=== PATIENT | female | born 1950 | race Caucasian/White ===

== ENCOUNTER → 2016-08-21 | Outpatient (CLI) | payer MEDICARE, BC ==
[~2016-08-21] MED LIST: EPIPEN 2-PAK1 MG/ML IM; LIPITOR20 MG PO; NEURONTIN300 MG/CAP PO; PREDNISONE20 MG PO; PROZAC 10MG10 MG PO; VERAPAMIL 440 MG/TAB PO
[2016-08-21 16:45] LABS: HIV 1/2 Antibodies Non-Reactive; HIV-1p24 Antigen Non-Reactive
== END ==
LOC: COL.LAB 15:52
PROVIDERS: Orthopaedic Surgery
DX: Z01.812 Encounter for preprocedural laboratory examination (principal); M25.862 Other specified joint disorders, left knee

== ENCOUNTER → 2017-03-17 | Outpatient (CLI) | payer MEDICARE, BC | LOC: MC.RAD 10:50 | DX: Z12.31 Encounter for screening mammogram for malignant neoplasm of breast (principal) ==

== ENCOUNTER → 2018-04-23 | Outpatient (CLI) | payer MEDICARE, BC | LOC: MC.RAD 10:49 | DX: Z12.31 Encounter for screening mammogram for malignant neoplasm of breast (principal) ==

== ENCOUNTER → 2018-11-10 | Outpatient (CLI) | payer MEDICARE, BC | LOC: COL.PUL 10-22 10:00 | DX: R06.02 Shortness of breath (principal); Z87.891 Personal history of nicotine dependence | CPT/HCPCS: J7674 ==

== ENCOUNTER → 2019-06-27 | Outpatient (CLI) | payer MEDICARE, BC | LOC: COL.RAD 09:45 | DX: M19.041 Primary osteoarthritis, right hand (principal) | CPT/HCPCS: J3301; Q9967 ==

== ENCOUNTER → 2019-11-02 | Outpatient (CLI) | payer MEDICARE, BC ==
[~2019-11-02] MED LIST changes: +ALPHA LIPOIC ACID PO; +CALCIUM CARBON650 M2 PO; +CLARITIN 1010 MG/TAB PO; +CLARITIN-D 10 M1 T24 PO; +CYANOCOBALAMIN PO; +CYMBALTA 60MG60 MG PO; +ELIQUIS 5MG PO; +FLOVENT DI50 MCG/Act IH; +ISOPTIN SR180 M1 PO; +LEXAPRO20 MG PO; +MULTI VITAMINS1 TAB PO; +NASACORT OTC NS; +PROAIR HFA0.09 MG/AC IH; +TURMERIC500 MG PO; +TYLENOL 8 HR PO; +WESTCORT 0.2% C15 GM TP
[2019-11-02 11:33] LABS: CALCIUM 9.4 mg/dL (8.4-10.2); CREATININE, serum 0.73 (0.52-1.25); POTASSIUM 4.5 mmol/L (3.4-5.0)
== END ==
LOC: COL.RAD 10:48
PROVIDERS: Internal Medicine Pulmonary Disease
DX: R06.02 Shortness of breath (principal); Z86.711 Personal history of pulmonary embolism
CPT/HCPCS: Q9967

== ENCOUNTER → 2019-11-11 | Outpatient (CLI) | payer MEDICARE, BC | LOC: COL.RAD 09:52 | DX: Z86.711 Personal history of pulmonary embolism (principal); Z86.718 Personal history of other venous thrombosis and embolism | CPT/HCPCS: A9540; A9567 ==

== ENCOUNTER → 2020-01-25 | Outpatient (CLI) | payer MEDICARE, BC | LOC: COL.RAD 08:30 | DX: I26.99 Other pulmonary embolism without acute cor pulmonale (principal) ==

== ENCOUNTER 2020-03-07 15:10 | Inpatient (IN) | payer MEDICARE, BC ==
[~2020-03-07] VITALS: Ht 180.3 cm; Wt 123.0 kg
[~2020-03-07 15:10] MED LIST changes: -MULTI VITAMINS1 TAB PO; +ONE-A-DAY ESSE1 EACH PO
[2020-04-11] VITALS (13 sets, daily range): BP systolic 114–154; BP diastolic 58–88; PULSE 56–81; TEMP 97.3–99
[2020-04-11] MEDS ORDERED: ELIQUIS 5MG PO (03:42)
[2020-04-11] MEDS ORDERED: REQUIP0.25 MG PO (03:47)
[2020-04-11] MEDS ORDERED: SINGULAIR 110 MG/TAB PO (03:48)
[2020-04-11] MEDS ORDERED: NORCO 325 MG-51 TAB PO (03:48)
[2020-04-11] MEDS ORDERED: MIRALAX PA17 GM/Dose PO (03:49)
[2020-04-11] MEDS ORDERED: PATADAY 2.5 ML2.5 ML OU (03:49)
[2020-04-11] MEDS ORDERED: FLONASE SENSIM9.9 ML NS (05:51)
[2020-04-11] MEDS ORDERED: LEXAPRO20 MG PO (05:53)
--- NOTE | 2020-04-11 10:10 | NUR ---
PATIENT BACK IN ROOM 331 POST OP. A&O. VSS. DENIES PAIN IN RLE. PATIENT IS ABLE TO MOVE BLE. RTK DRESSING IS CD&I WITH ACEWRAP AND ICE PACK INPLACE. TEDS TO LLE. SCD'S TO BLE. POSITIVE PEDAL PULSES TO BLE. NO C/O N/V. IV FLUIDS INFUSING INTO LEFT FORARM IV VIA PUMP. LIQUIDS AT BEDSIDE. HEAD TO TOE ASSESSMENT WNL. ORIENTED TO ROOM. CALL LIGHT IN REACH. AT BEDSIDE.
--- NOTE | 2020-04-11 11:13 | NUR ---
First visit from the molded goods inspector trimmer. No needs right now.
--- NOTE | 2020-04-11 12:00 | NUR ---
PATIENT DOING WELL. VSS. PATIENT SITTING UP IN BED WITH LUNCH TRAY. NO C/O N/V. PATIENT IS REPORTING SOME PAIN RATED AT 4-5 ON PAIN SCALE IN RLE AND IS REQUESTING SOMETHING FOR PAIN. GAVE PRN ROXICODONE, TWO TABS.
--- NOTE | 2020-04-11 14:49 | NUR ---
Commercial Representative met with patient to discuss discharge planning. Patient lives alone in [place] and sees Dr. Unger for primary care. Patient obtains medications from [facility] pharmacy with no difficulties. Patient has a four wheeled walker and also uses oxygen overnight from [employer]. Patient is supposed to use a CPAP, but reports she just can't do it. Patient states she provided DPOA-HC paperwork upon admission, but SW did not locate it in EMR. Patient lists her point of contact as her brother in law, Dwayne (ph#[phone]). Patient plans to return home upon discharge. SW will continue to follow.
--- NOTE | 2020-04-11 19:05 | NUR ---
Received report from SUSHMA Montano. Pt currently resting in bed and has her call light within reach.
--- NOTE | 2020-04-11 22:00 | NUR ---
Pt ambulated down to the nurse station and back. Pt has been getting pain medication when available. Pt stated that her pain is much better. Pt tolerated walking very well. Pt is currently back in bed and has her call light within reach.
[2020-04-12 05:20] VITALS: BP 133/68; PULSE 76; TEMP 98
[2020-04-12 06:26] LABS: HEMATOCRIT 38.3 % (37.0-47.0); HEMOGLOBIN 12.3 g/dl (12.5-16.0)
--- NOTE | 2020-04-12 07:11 | NUR ---
Reported off to SUSHMA Montano. Pt is curently resting in bed. Pt was given her morning medications as well as her pain medication this morning. Pt stated that her pain was at a 7 this morning before the mediction was given.
[2020-04-12 09:34] VITALS: BP 127/76; PULSE 80; TEMP 98
--- NOTE | 2020-04-12 11:25 | NUR ---
Dressing changed perfromed of right knee. 17 cm long suture present.
[2020-04-12 12:50] VITALS: BP 120/66; PULSE 78; TEMP 98.2
[2020-04-12 15:35] VITALS: BP 154/72; PULSE 84; TEMP 97.6
[2020-04-12 20:42] VITALS: BP 141/65; PULSE 80; TEMP 97.6
--- NOTE | 2020-04-12 22:34 | NUR ---
Patient resting in bed stating her pain is tolerable. Patient's IV site had redness and when flushed became puffy. IV was discontinued. Patient has no other complaints.
[2020-04-12 23:40] VITALS: BP 116/66; PULSE 73; TEMP 99
--- NOTE | 2020-04-13 04:52 | NUR ---
PATIENT HAS SOME COMPLAINTS OF PAIN. GAVE HER OXYCODONE AND PATIENT IS NOW SLEEPING.
[2020-04-13 04:59] VITALS: BP 133/68; PULSE 65; TEMP 97.4
[2020-04-13 06:55] VITALS: BP 117/60; PULSE 78; TEMP 97.8
--- NOTE | 2020-04-13 08:00 | NUR ---
Patient in bed resting. Alert and oriented x 3. Assessment complete. Denies pain at this time. Tedhose and SCDs to BLE. Aquacell to right knee is CDI. Denies further needs at this time.
[2020-04-13] MEDS ORDERED: NORCO 325 MG-7.1 TAB PO (11:07)
[2020-04-13] MEDS ORDERED: ROXICODONE 55 MG/TAB PO (11:08)
[2020-04-13 12:03] VITALS: BP 128/63; PULSE 77; TEMP 98
--- NOTE | 2020-04-13 13:20 | NUR ---
Discharge education provided to patient. Educated on when to call provider as well as follow up appointments. Educated on signs and symptoms of infection. All questions answered, patient requested pain meds prior to discharge, medications given per orders.
--- NOTE | 2020-04-13 13:37 | NUR ---
Patient out by wheelchair with surgical staff and family.
== END 2020-04-13 13:37 | disposition home or self-care (01) | DRG 470 ==
LOC: JCC 04-11 05:15
PROVIDERS: ADMIT Orthopaedic Surgery
PROC: 0SRC0J9 Replacement of Right Knee Joint with Synthetic Substitute, Cemented, Open Approach (ICD-10-PCS; principal; 2020-04-11 07:30)
DX: M17.11 Unilateral primary osteoarthritis, right knee (principal); Z86.718 Personal history of other venous thrombosis and embolism; Z86.711 Personal history of pulmonary embolism
CPT/HCPCS: A9284; C1776; J0690; J2250; J2405; J2704; J3010; J7030; J7120

== ENCOUNTER → 2020-03-12 | Outpatient (CLI) | payer MEDICARE, BC ==
[~2020-03-12] MED LIST changes: +MULTI VITAMINS1 TAB PO; -ONE-A-DAY ESSE1 EACH PO
== END ==
LOC: COL.RAD 07:22
DX: M19.041 Primary osteoarthritis, right hand (principal)
CPT/HCPCS: J3301; Q9967

== ENCOUNTER 2020-05-07 12:20 | Emergency (ER) | payer MEDICARE, BC ==
[~2020-05-07] VITALS: Ht 180.3 cm; Wt 118.2 kg
[~2020-05-07 12:20] MED LIST changes: +FLONASE SENSIM9.9 ML NS; +MIRALAX PA17 GM/Dose PO; -MULTI VITAMINS1 TAB PO; +NORCO 325 MG-51 TAB PO; +NORCO 325 MG-7.1 TAB PO; +ONE-A-DAY ESSE1 EACH PO; +PATADAY 2.5 ML2.5 ML OU; +REQUIP0.25 MG PO; +ROXICODONE 55 MG/TAB PO; +SINGULAIR 110 MG/TAB PO
[2020-05-07 12:29] VITALS: TEMP 97.2
[2020-05-07 13:37] LABS: ALANINE AMINOTRANSFERASE 17 U/L (4-34); ALKALINE PHOSPHATASE 103 U/L (50-136); ANION GAP 6 mmol/L (7-16); AST,SGOT 24 U/L (15-37); BILIRUBIN,TOTAL 0.8 mg/dL (0.0-1.0); BLOOD UREA NITROGEN 13 mg/dL (7-17); CALCIUM 9.1 mg/dL (8.4-10.2); CARBON DIOXIDE 28 mmol/L (22-30); CHLORIDE 103 mmol/L (98-107); CREATININE, serum 0.67 (0.52-1.25); GLUCOSE 107 mg/dL (74-106); POTASSIUM 3.9 mmol/L (3.4-5.0); SODIUM 138 mmol/L (137-145); TOTAL PROTEIN 6.8 gm/dL (6.4-8.2)
[2020-05-07 13:42] LABS: BASO % 0.4 % (0.0-2.0); EOS # 0.2 (0.0-0.7); EOS % 3.5 % (0-4.0); GRAN # 2.9 (1.4-6.5); GRAN % 65.1 % (42.2-75.2); HEMATOCRIT 41.4 % (37.0-47.0); HEMOGLOBIN 13.4 g/dl (12.5-16.0); LYMPH % 21.3 % (20.0-51.0); MEAN CELL VOLUME 93 fl (80.0-100.0); MEAN CORPUSCULAR HEMOGLOBIN 30 pg (27.0-31.0); MEAN CORPUSCULAR HGB CONC 32 g/dl (33.0-37.0); MEAN PLATELET VOLUME 11.8 fl (7.4-10.4); MONO # 0.4 (0.1-0.6); MONO % 9.5 % (1.7-9.3); PLATELET COUNT 222 K/mm3 (130-400); RED BLOOD COUNT 4.45 M/mm3 (4.10-5.30); REDCELL DISTRIBUTION WIDTH-CV 12.5 % (11.5-14.5)
[2020-05-07 13:49] LABS: TROPONIN-I < 0.012 ng/mL (0.000-0.035)
[2020-05-07 15:13] LABS: COLLECTION METHOD CLEAN CATCH
[2020-05-07 15:35] LABS: PH 7 (5-8); SQUAMOUS EPITHELIAL None Seen /hpf; URINE APPEARANCE Clear; URINE BACTERIA None Seen /hpf; URINE BILIRUBIN Negative (NEGATIVE); URINE BLOOD Negative (NEGATIVE); URINE COLOR Yellow; URINE GLUCOSE Negative (NEGATIVE); URINE KETONE Negative (NEGATIVE); URINE LEUKOCYTE ESTERASE Negative (NEGATIVE); URINE NITRATE Negative (NEGATIVE); URINE PROTEIN(semi-quant) Negative (NEGATIVE); URINE RBC 0-2 /hpf; URINE UROBILINOGEN Negative (NEGATIVE)
[2020-05-07] MEDS ORDERED: CEPHALEXIN500 M1 PO (16:11)
[2020-05-07 16:44] VITALS: BP 169/102; PULSE 77
== END 2020-05-07 16:44 | disposition home or self-care (01) ==
LOC: COL.ER 12:20
PROVIDERS: Family Medicine
DX: R06.00 Dyspnea, unspecified (principal); L03.116 Cellulitis of left lower limb; E78.5 Hyperlipidemia, unspecified; Z20.828 Contact with and (suspected) exposure to other viral communicable diseases; Z88.1 Allergy status to other antibiotic agents; Z88.4 Allergy status to anesthetic agent; Z88.6 Allergy status to analgesic agent; Z79.01 Long term (current) use of anticoagulants; Z79.51 Long term (current) use of inhaled steroids; Z79.891 Long term (current) use of opiate analgesic
CPT/HCPCS: J0690; J7120; Q9967

== ENCOUNTER → 2020-06-28 | Outpatient (CLI) | payer MEDICARE, BC ==
[~2020-06-28] MED LIST changes: +CEPHALEXIN500 M1 PO
== END ==
LOC: COL.RAD 12:01
DX: I27.20 Pulmonary hypertension, unspecified (principal)
CPT/HCPCS: A9540; A9567

== ENCOUNTER → 2020-07-06 | Outpatient (CLI) | payer MEDICARE, BC | LOC: COL.VAS 13:56 | DX: I27.20 Pulmonary hypertension, unspecified (principal) ==

== ENCOUNTER → 2020-07-09 | Outpatient (CLI) | payer MEDICARE, BC | LOC: COL.RAD 08:00 | DX: I27.20 Pulmonary hypertension, unspecified (principal) ==

== ENCOUNTER → 2020-10-04 | Outpatient (CLI) | payer MEDICARE, BC | LOC: COL.RAD 09:17 | DX: M25.541 Pain in joints of right hand (principal) | CPT/HCPCS: J3301; Q9967 ==

== ENCOUNTER 2020-10-19 08:37 | Emergency (ER) | payer MEDICARE, BC ==
[~2020-10-19] VITALS: Ht 180.3 cm; Wt 113.6 kg
[2020-10-19 08:45] VITALS: TEMP 97.6
[2020-10-19 09:04] LABS: BASO % 0.3 % (0.0-2.0); EOS # 0.1 (0.0-0.7); EOS % 0.9 % (0-4.0); GRAN # 3.9 (1.4-6.5); GRAN % 67.9 % (42.2-75.2); HEMATOCRIT 43.4 % (37.0-47.0); HEMOGLOBIN 13.8 g/dl (12.5-16.0); LYMPH # 1.4 (1.2-3.4); LYMPH % 23.2 % (20.0-51.0); MEAN CELL VOLUME 91 fl (80.0-100.0); MEAN CORPUSCULAR HEMOGLOBIN 29 pg (27.0-31.0); MEAN CORPUSCULAR HGB CONC 32 g/dl (33.0-37.0); MEAN PLATELET VOLUME 10.6 fl (7.4-10.4); MONO # 0.4 (0.1-0.6); MONO % 7.4 % (1.7-9.3); PLATELET COUNT 201 K/mm3 (130-400); RED BLOOD COUNT 4.77 M/mm3 (4.10-5.30); REDCELL DISTRIBUTION WIDTH-CV 13.5 % (11.5-14.5)
[2020-10-19 09:19] LABS: ALANINE AMINOTRANSFERASE 23 U/L (4-34); ALBUMIN 4.1 gm/dL (3.5-5.0); ALKALINE PHOSPHATASE 76 U/L (50-136); ANION GAP 4 mmol/L (7-16); AST,SGOT 26 U/L (15-37); BILIRUBIN,TOTAL 0.3 mg/dL (0.0-1.0); BLOOD UREA NITROGEN 15 mg/dL (7-17); C-REACTIVE PROTEIN < 0.5 mg/dL (0.0-0.9); CALCIUM 8.7 mg/dL (8.4-10.2); CARBON DIOXIDE 30 mmol/L (22-30); CHLORIDE 105 mmol/L (98-107); CREATININE, serum 0.66 (0.52-1.25); GLUCOSE 94 mg/dL (74-106); POTASSIUM 4.2 mmol/L (3.4-5.0); SODIUM 139 mmol/L (137-145); TOTAL PROTEIN 7.1 gm/dL (6.4-8.2)
[2020-10-19] MEDS ORDERED: PREDNISONE20 MG PO (10:15)
[2020-10-19 10:35] VITALS: BP 141/89; PULSE 72
== END 2020-10-19 10:35 | disposition home or self-care (01) ==
LOC: COL.ER 08:37
PROVIDERS: Family Medicine
DX: L50.0 Allergic urticaria (principal); I10 Essential (primary) hypertension; Z88.1 Allergy status to other antibiotic agents; Z88.8 Allergy status to other drugs, medicaments and biological substances; Z79.899 Other long term (current) drug therapy
CPT/HCPCS: J1200; J2930

== ENCOUNTER 2021-05-30 15:00 | Outpatient (RCR) | payer MEDICARE, BC | END 2021-06-07 | disposition home or self-care (01) | LOC: WSC | DX: M89.49 Other hypertrophic osteoarthropathy, multiple sites (principal); R26.89 Other abnormalities of gait and mobility ==

== ENCOUNTER → 2021-06-26 | Outpatient (CLI) | payer MEDICARE, BC | LOC: MC.RAD 10:52 | DX: Z12.31 Encounter for screening mammogram for malignant neoplasm of breast (principal) ==

== ENCOUNTER → 2021-09-03 | Outpatient (CLI) | payer MEDICARE, BC | LOC: COL.RAD 08:56 | DX: M25.541 Pain in joints of right hand (principal) | CPT/HCPCS: J3301; Q9967 ==

== ENCOUNTER → 2022-08-04 | Outpatient (CLI) | payer MEDICARE, BC | LOC: MC.RAD 10:53 | DX: Z12.31 Encounter for screening mammogram for malignant neoplasm of breast (principal) ==

== ENCOUNTER → 2022-09-10 | Outpatient (CLI) | payer MEDICARE, BC | LOC: COL.RAD 09:52 | DX: M25.541 Pain in joints of right hand (principal) | CPT/HCPCS: J3301; Q9967 ==

== ENCOUNTER → 2023-06-24 | Outpatient (CLI) | payer MEDICARE, BC ==
[~2023-06-24] MED LIST changes: +Albuterol 0.083% Neb Soln 2.5 MG/3 ML UD IH ONE
== END ==
LOC: COL.CARD 11:04
DX: R06.02 Shortness of breath (principal)

== ENCOUNTER 2024-01-31 21:52 | Inpatient (IN) | payer MEDICARE ==
[~2024-01-31] VITALS: Ht 180.3 cm; Wt 132.7 kg
[~2024-01-31 21:52] MED LIST changes: -Albuterol 0.083% Neb Soln 2.5 MG/3 ML UD IH ONE
[2024-01-31] MEDS ORDERED: dilTIAZem 25 MG/5 ML VIAL IV ONE ×2 (22:30)
[2024-01-31 22:46] LABS: BASO % 0.5 % (0.0-2.0); EOS # 0.1 K/mm3 (0.0-0.7); EOS % 1.8 % (0.0-4.0); GRAN # 3.7 K/mm3 (1.4-6.5); GRAN % 58.2 % (42.2-75.2); HEMATOCRIT 39.7 % (37.0-47.0); HEMOGLOBIN 12.8 g/dl (12.5-16.0); LYMPH # 1.9 K/mm3 (1.2-3.4); LYMPH % 29.9 % (20.0-51.0); MEAN CELL VOLUME 93 fl (80.0-100.0); MEAN CORPUSCULAR HEMOGLOBIN 30 pg (27-31); MEAN CORPUSCULAR HGB CONC 32 g/dl (33.0-37.0); MEAN PLATELET VOLUME 13.5 fl (7.4-10.4); MONO # 0.6 K/mm3 (0.1-0.6); MONO % 9.1 % (1.7-9.3); PLATELET COUNT 151 K/mm3 (130-400); RED BLOOD COUNT 4.27 M/mm3 (4.10-5.30); REDCELL DISTRIBUTION WIDTH-CV 12.7 % (11.5-14.5)
[2024-01-31 22:57] LABS: ALANINE AMINOTRANSFERASE 31 U/L (0-55); ALBUMIN 3.7 g/dL (3.4-4.8); ALKALINE PHOSPHATASE 77 U/L (40-150); ANION GAP 14 mmol/L (7-16); AST,SGOT 22 U/L (5-34); BILIRUBIN,TOTAL 0.6 mg/dL (0.2-1.2); BLOOD UREA NITROGEN 17 mg/dL (10-20); CHLORIDE 106 mEq/L (98-107); CREATININE, serum 0.88 mg/dL (0.57-1.11); GLUCOSE 105 mg/dL (70-99); MAGNESIUM 1.8 mg/dL (1.6-2.6); POTASSIUM 3.6 mEq/L (3.5-4.5); SODIUM 140 mEq/L (136-145); TOTAL PROTEIN 6.6 g/dl (6.2-8.1)
[2024-01-31] MEDS ORDERED: NS 1,000 ML IV ONE (23:00)
[2024-01-31 23:08] LABS: TROPONIN-I < 0.010 ng/mL (0.00-0.033)
[2024-02-01] VITALS (16 sets, daily range): BP systolic 98–124; BP diastolic 68–84; PULSE 55–108; TEMP 97.4–97.9
[2024-02-01 00:27] LABS: COLLECTION METHOD CLEAN CATCH
[2024-02-01] MEDS ORDERED: Acetaminophen 325 MG TAB PO PRN (00:30)
[2024-02-01] MEDS ORDERED: NS 1,000 ML IV ONE (00:30)
[2024-02-01] MEDS ORDERED: Ondansetron 4 MG/2 ML VIAL IV PRN (00:30)
[2024-02-01] MEDS ORDERED: Magnesium Sulfate 4% 50 ML IV ONE (00:30)
[2024-02-01 00:39] LABS: URINE APPEARANCE CLEAR (CLEAR/HAZY); URINE BLOOD NEGATIVE (NEGATIVE); URINE COLOR YELLOW (YELLOW); URINE GLUCOSE NEGATIVE (NEGATIVE); URINE KETONE TRACE (NEGATIVE); URINE NITRATE NEGATIVE (NEGATIVE); URINE PROTEIN(semi-quant) 1+ (NEGATIVE)
[2024-02-01] MEDS ORDERED: LASIX 20MG TABL20 MG PO (02:56)
[2024-02-01] MEDS ORDERED: LYRICA 75MG CAP75 MG PO (02:58)
[2024-02-01] MEDS ORDERED: REQUIP 1MG T1 MG/TAB PO (03:00)
[2024-02-01] MEDS ORDERED: REQUIP2 MG PO (03:01)
[2024-02-01] MEDS ORDERED: ZYRTEC 10MG10 MG PO (03:05)
[2024-02-01] MEDS ORDERED: NATURAL IRON65 MG (03:13)
[2024-02-01] MEDS ORDERED: MAGNESIUM250 M1 PO (03:15)
[2024-02-01] MEDS ORDERED: [UNRECOGNIZED DRUG - REMARK] IH SCH (07:00)
[2024-02-01] MEDS ORDERED: Budesonide Neb Susp 0.5 MG/2 ML AMP IH SCH (07:00)
[2024-02-01] MEDS ORDERED: Pregabalin 75 MG CAP PO SCH (09:00)
[2024-02-01] MEDS ORDERED: Apixaban 5 MG TABLET PO SCH (09:00)
[2024-02-01] MEDS ORDERED: Atorvastatin 20 MG TAB PO SCH (09:00)
[2024-02-01] MEDS ORDERED: Escitalopram 10 MG TAB PO SCH (09:00)
[2024-02-01] MEDS ORDERED: Sennosides/Docusate 8.6-50 MG TAB PO SCH (09:00)
[2024-02-01] MEDS ORDERED: Ferrous Sulfate 325 MG TAB PO SCH (09:00)
--- NOTE | 2024-02-01 09:26 | NUR ---
Patient resting in bed, alert and oriented x 4, VSS. States some lightheadedness when walking. Getting fluids NS 50 MLS/HR. Tele in place, afib. Assessment completed. States some headache, tylenol given. She has been NPO since 6pm yesterday. Echo alfonso arriving. No further needs at this time. Call light within reach.
[2024-02-01 10:08] LABS: THYROID STIMULATING HORMONE 2.015 uIU/mL (0.350-4.940); TROPONIN-I 6 HR POST INITIAL < 0.010 ng/mL (0.00-0.033)
--- NOTE | 2024-02-01 11:02 | NUR ---
Patient signed consent for procedure. Dr. Mckeon arriving. Pt going for procedure right now.
[2024-02-01] MEDS ORDERED: Lidocaine PF 1% (10 MG/ML) 5 ML VIAL ONE (11:16)
[2024-02-01] MEDS ORDERED: Adenosine 6 MG/2 ML VIAL IV SCH (12:11)
[2024-02-01] MEDS ORDERED: Verapamil 2.5 MG/ML 2 ML VIAL IV SCH (12:12)
--- NOTE | 2024-02-01 12:12 | NUR ---
SW met with patient to complete initial assessment for discharge planning. Patient [facility] that [facility] [place]. She lists her friend Ambreen Moya *[phone]) and Dwayne Jordana ([phone]) as DPOA. Patient sees Dr. Unger as her PCP and uses [facility]. Patient states that she has a cane, walker, bsc, shower chair in a walk in shower and grab bars. Patient is covered by Medicare A&B and BS supplemental insurances. Patient is independent with all activities and drives herself to appointments without difficulty. Discharge plan: Home
[2024-02-01] MEDS ORDERED: Amiodarone 450 MG in D5W Excel 250 ML IV SCH ×2 (12:15→18:02)
--- NOTE | 2024-02-01 12:39 | NUR ---
Patient is back in the room. ALert and oriented x4. Post op VS started.
--- NOTE | 2024-02-01 12:55 | NUR ---
Patient is getting amiodarone gtt 34.5mls/hr. 1mg/min.
[2024-02-01 12:56] LABS: CHOLESTEROL RISK RATIO 3.1
[2024-02-01] MEDS ORDERED: WEGOVY0.25 MG/0. SL (13:27)
[2024-02-01] MEDS ORDERED: SEMAGLUTIDE (14:04)
[2024-02-01] MEDS ORDERED: Regadenoson 0.08 MG/ML 5 ML SYRINGE IV SCH (15:56)
--- NOTE | 2024-02-01 16:56 | NUR ---
Patient is back from [facility].
[2024-02-01] MEDS ORDERED: rOPINIRole 1 MG TAB PO SCH ×2 (17:00→21:00)
[2024-02-01] MEDS ORDERED: Heparin/D5W 250 ML IV SCH (21:00)
[2024-02-01] MEDS ORDERED: Heparin 5,000 UNITS/ML 1 ML VIAL IV PRN (21:00)
[2024-02-01] MEDS ORDERED: Mag/Al Hydrox/Simeth Susp 30 ML CUP PO PRN (22:30)
[2024-02-01] MEDS ORDERED: Famotidine 20 MG TAB PO SCH (22:30)
[2024-02-02] VITALS (16 sets, daily range): BP systolic 91–120; BP diastolic 59–95; PULSE 57–119; TEMP 97.6–98.6
[2024-02-02 04:12] LABS: BASO % 0.4 % (0.0-2.0); EOS # 0.1 K/mm3 (0.0-0.7); GRAN # 3.3 K/mm3 (1.4-6.5); GRAN % 65.9 % (42.2-75.2); HEMOGLOBIN 11.6 g/dl (12.5-16.0); LYMPH # 1.2 K/mm3 (1.2-3.4); LYMPH % 23.8 % (20.0-51.0); MEAN CELL VOLUME 91 fl (80.0-100.0); MEAN CORPUSCULAR HEMOGLOBIN 30 pg (27-31); MEAN CORPUSCULAR HGB CONC 32 g/dl (33.0-37.0); MEAN PLATELET VOLUME 13.8 fl (7.4-10.4); MONO # 0.4 K/mm3 (0.1-0.6); MONO % 7.7 % (1.7-9.3); PLATELET COUNT 118 K/mm3 (130-400); RED BLOOD COUNT 3.92 M/mm3 (4.10-5.30); REDCELL DISTRIBUTION WIDTH-CV 12.7 % (11.5-14.5)
[2024-02-02 04:31] LABS: HEMATOCRIT 35.8 % (37.0-47.0)
[2024-02-02 04:39] LABS: CALCIUM 8.9 mg/dL (8.4-10.2); CREATININE, serum 0.78 mg/dL (0.57-1.11); POTASSIUM 3.8 mEq/L (3.5-4.5)
--- NOTE | 2024-02-02 08:30 | NUR ---
PATIENT SITTING IN RECLINER.PATIENT ALERT AND ORIENTED X4. ON ROOM AIR. TELEMETRY PLACED. PATIENT REPORTS SOME EPIGASTRIC DISCOMFORT BUT DENIES PAIN. PATIENT AMIODARONE DRIP INFUSING PER DOCTORS ORDER ON RIGHT FORARM IV SITE C/D/I. HEPARIN DRIP ON PATIENT LEFT FORARM INFUSING PER PROTOCOL. PATIENT DENIES ANY NEEDS AT THIS TIME. CALL LIGHT WITHIN REACH. BED AT LOWEST POSITION.
[2024-02-02] MEDS ORDERED: Adenosine 6 MG/2 ML VIAL IV ONE ×2 (10:15→11:30)
--- NOTE | 2024-02-02 10:53 | NUR ---
Initial visit; Patient needing to talk and was weepy while doing so. Clarissa was receptive to prayer from Artist Manager which appeared to help a great deal. When Artist Manager prepared to leave Clarissa was smiling and thanked Artist Manager for keeping her in Artist Manager's prayers. Artist Manager will follow-up while patient is here.
[2024-02-02] MEDS ORDERED: Furosemide 20 MG TAB PO SCH (11:00)
--- NOTE | 2024-02-02 12:20 | NUR ---
CARDIOLOGY WILMA FLORES WAS NOTIFIED OF PATIENT ELEVATED HEART RATE.
[2024-02-02] MEDS ORDERED: Apixaban 5 MG TABLET PO SCH (13:15)
--- NOTE | 2024-02-02 16:44 | NUR ---
Cooker Loader contacted Hospitalist to order PT/OT eval. SW also was notified by Cardiology that patient needs a Life Vest. LORI faxed referral to Larry and left a message for Larry Gutierres Rep.
--- NOTE | 2024-02-02 16:49 | NUR ---
CRITICAL LAB VALUE AND BLOOD PRESSURE REPORTED TO HYACINTH CHONG. PATIENT DENIES ANY SYMPTOMS AT THIS TIME. PATIENT BLOOD PRESSURE WILL BE RECHECKED.
[2024-02-02] MEDS ORDERED: Pregabalin 75 MG CAP PO SCH (21:00)
--- NOTE | 2024-02-02 21:06 | NUR ---
PATIENT IS AWAKE AND ALERT, SITTING UP IN HER RECLINER. PATEINT DENIES ANY NEEDS OR COMPLAITNS AT THIS TIME. RFA IV WITH AMIO AT 0.5MG/HR INFUSING ORDERED. PERIPHERAL LINE WITH NO SIGNS OF INFILTRATION, PATIENT DENEIS ANY PAIN AT THE SITE. CALL LIGHT WITHIN REACH.
--- NOTE | 2024-02-02 23:45 | NUR ---
PATIENT AWAKE AND ALERT, SITTING UP IN BED. PATIEN RFA SITE CDI, SLIGHT REDNESS NOTED HOWEVER PATIENT DENIES ANY COMPLAINTS TO IV SIITE. AMIO GTT INFUSING ORDERED. PAIENT HER STILL 110-115 BPM. BLOOD PRESSURE OK AT THIS TIME.
[2024-02-03] VITALS (18 sets, daily range): BP systolic 95–112; BP diastolic 58–86; PULSE 55–113; TEMP 97.6–98.5
--- NOTE | 2024-02-03 03:26 | NUR ---
PATIENT ASLEEP, EASILY AROUSES. UPON CHECKING RFA SITE, REDNESS NOTED WHERE IV INSERTS TO RFA NOW TRAVELING UPWARDS. BLOOD RETURN POSITIVE. IV REMOVED D/T RENDESS/TENDERNESS. IV TO LFA WITH GREAT BLOOD REURN, PATENT, IV AMIO NOW INFUSING THERE. PATIENT DENEIS ANY NEEDS OR COMPLAITNS AT THIS TIME. CALL LIGHT WITHIN REACH.
[2024-02-03 06:24] LABS: BASO % 0.7 % (0.0-2.0); EOS # 0.1 K/mm3 (0.0-0.7); EOS % 2.4 % (0.0-4.0); GRAN # 2.8 K/mm3 (1.4-6.5); GRAN % 60.5 % (42.2-75.2); HEMOGLOBIN 11.4 g/dl (12.5-16.0); LYMPH # 1.2 K/mm3 (1.2-3.4); LYMPH % 25.5 % (20.0-51.0); MEAN CELL VOLUME 91 fl (80.0-100.0); MEAN CORPUSCULAR HEMOGLOBIN 30 pg (27-31); MEAN CORPUSCULAR HGB CONC 33 g/dl (33.0-37.0); MEAN PLATELET VOLUME 13.8 fl (7.4-10.4); MONO # 0.5 K/mm3 (0.1-0.6); MONO % 10.7 % (1.7-9.3); PLATELET COUNT 107 K/mm3 (130-400); RED BLOOD COUNT 3.84 M/mm3 (4.10-5.30); REDCELL DISTRIBUTION WIDTH-CV 12.6 % (11.5-14.5)
[2024-02-03 06:33] LABS: INR 1.7 (0.8-3.0); PROTHROMBIN TIME 18.3 SECONDS (9.7-12.8)
[2024-02-03 06:45] LABS: CALCIUM 8.7 mg/dL (8.4-10.2); CREATININE, serum 0.79 mg/dL (0.57-1.11); POTASSIUM 3.7 mEq/L (3.5-4.5)
--- NOTE | 2024-02-03 06:55 | NUR ---
BEDSIDE SHIFT REPORT GIVEN., PATIENT IS AWAKE AND ALERT ,SITTING UP IN BED. PATIENT DENIES ANY NEEDS OR COMPLAINTS. LFA IV WITH AMIOG TT INFUSING ORDERED. IV TO LFA CDI WITH NO S/S OF INFILTRATION. CALL LIGHT WTIHIN REACH.
--- NOTE | 2024-02-03 10:07 | NUR ---
Follow-up visit; Patient expressed gladness to see Devulcanizer Charger again this morning and thanked Devulcanizer Charger for checking on her. Patient states that she is doing much better, her mental state was much better and she thanked Devulcanizer Charger for her prayers that are working. wished Clarissa well.
--- NOTE | 2024-02-03 13:53 | NUR ---
Wire Drawing Setter spoke with RN who advised patient's life vest will be delivered and fitted today.
--- NOTE | 2024-02-03 14:20 | NUR ---
patient picc dressing changed by iv services nurse. patient observed with experiencing some dizziness. patient vital checked. patient helped to recliner to eat lunch. call light within reach. chair alarm on.
--- NOTE | 2024-02-03 19:03 | NUR ---
PATIENT RESTING IN BED WITH TV ON WITH NO FAMILY PRESENT WITH NO ACUTE DISTRESS NOTED. PATIENT ON ROOM AIR. PICC LINE TO RIGHT UPPER ARM INFUSING AMIODARONE WITH NO COMPLICATIONS NOTE. TELEMETRY INTACT. LIFE VEST ON. BEDSIDE SHIFT REPORT COMPLETED WITH ERA AT THIS TIME. PATIENT DENIES ANY NEEDS. BED IN LOW POSITION WITH WHEELS LOCKED WITH RAILS UP X3 AND CALL LIGHT WITHIN REACH.
--- NOTE | 2024-02-03 20:15 | NUR ---
PATIENT RESTING IN BED WITH TV ON WITH NO FAMILY PRESENT WITH NO ACUTE DISTRESS NOTED. PATIENT ON ROOM AIR. AMIODARONE DRIP INFUSING INTO RIGHT UPPER ARM PICC LINE WITH NO COMPLICATIONS NOTED. TELEMETRY INTACT. LIFE VEST ON. ASSESSMENT COMPLETED AT THIS TIME. PATIENT TOLERATED WELL. PATIENT DENIES ANY NEEDS AT THIS TIME. BED IN LOW POSITION WITH WHEELS LOCKED WITH RAILS UP X3 AND CALL LIGHT WITHIN REACH.
--- NOTE | 2024-02-03 22:15 | NUR ---
PATIENT RESTING IN BED WITH TV ON WITH NO FAMILY PRESENT WITH NO ACUTE DISTRESS NOTED. PATIENT ON ROOM AIR. AMIODARONE INFUSING INTO RIGHT UPPER ARM PICC LINE WITH NO COMPLICATIONS NOTED. TELEMETRY INTACT. LIFE VEST ON. MEDICATION ADMINISTRATION COMPLETED AT THIS TIME. PATIENT TOLERATED WELL. PATIENT ASSISTED TO TAKE OF BRA. PATIENT DENIES ANY OTHER NEEDS. BED IN LOW POSITION WITH WHEELS LOCKED WITH RAILS UP X3 AND CALL LIGHT WITIN REACH.
[2024-02-04] VITALS (12 sets, daily range): BP systolic 96–160; BP diastolic 70–90; PULSE 48–106; TEMP 96.8–97.9
[2024-02-04 05:35] LABS: BASO % 0.4 % (0.0-2.0); EOS # 0.1 K/mm3 (0.0-0.7); EOS % 1.6 % (0.0-4.0); GRAN # 3.1 K/mm3 (1.4-6.5); GRAN % 60.6 % (42.2-75.2); HEMATOCRIT 35.1 % (37.0-47.0); HEMOGLOBIN 11.4 g/dl (12.5-16.0); LYMPH # 1.4 K/mm3 (1.2-3.4); LYMPH % 27.3 % (20.0-51.0); MEAN CELL VOLUME 91 fl (80.0-100.0); MEAN CORPUSCULAR HEMOGLOBIN 30 pg (27-31); MEAN CORPUSCULAR HGB CONC 33 g/dl (33.0-37.0); MEAN PLATELET VOLUME 13.7 fl (7.4-10.4); MONO # 0.5 K/mm3 (0.1-0.6); MONO % 9.9 % (1.7-9.3); PLATELET COUNT 119 K/mm3 (130-400); RED BLOOD COUNT 3.87 M/mm3 (4.10-5.30); REDCELL DISTRIBUTION WIDTH-CV 12.7 % (11.5-14.5)
[2024-02-04 05:38] LABS: INR 1.7 (0.8-3.0); PROTHROMBIN TIME 17.8 SECONDS (9.7-12.8)
[2024-02-04 05:49] LABS: CALCIUM 8.7 mg/dL (8.4-10.2); CREATININE, serum 0.83 mg/dL (0.57-1.11); POTASSIUM 4.1 mEq/L (3.5-4.5)
--- NOTE | 2024-02-04 08:30 | NUR ---
PATIENT ALERT AND ORIENTED X4. ON ROOM AIR. DENIES PAIN AT THIS TIME. TELEMETRY PLACED. PATIENT ON AMIO DRIP INFUSING PER ORDERS. PATIENT CALL LIGHT WITHIN REACH. CHAIR ALARM ON.
--- NOTE | 2024-02-04 15:16 | NUR ---
Strategic Marketing Manager and student, Rhiannon met with patient to present and review IM form. Patient verbalized understanding and provided signature. SW placed original in chart and provided copy to patient.
--- NOTE | 2024-02-04 18:56 | NUR ---
PATIENT RESTING IN BED WITH TV ON WITH NO FAMILY PRESENT WITH NO ACUTE DISTRESS NOTED. PATIENT ON ROOM AIR. AMIODARONE INFUSING INTO RIGHT UPPER ARM PICC LINE WITH NO COMPLICATIONS NOTED. BEDSIDE SHIFT REPORT COMPLETED WITH ERA AT THIS TIME. PATIENT DENIES ANY NEEDS. BED IN LOW POSITION WITH WHEELS LOCKED WITH RAILS UP X3 AND CALL LIGHT WITHIN REACH.
--- NOTE | 2024-02-04 19:10 | NUR ---
PATIENT SITTING ON EDGE OF BED UPON PRIMARY NURSE ENTRY INTO ROOM. TV ON WITH NO FAMILY PRESENT WITH NO ACUTE DISTRESS NOTED. PATIENT ON ROOM AIR. PATIENT UP TO BRUSH TEETH AT THIS TIME AND REQUESTED ANOTHER TUBE OF TOOTH PASTE, WHICH WAS GIVEN. PATIENT AMBULATED TO BATHROOM WITH STAND BY ASSIST. PATIENT VOIDED AND DID OWN RADHA CARE. PATIENT AMBULATED TO SINK AND WASHED HANDS, THEN RETURNED TO BED. ASSESSMENT COMPLETED AT THIS TIME. PATIENT TOLERATED WELL. PATIENT ASKED ABOUT WHEN HER ORAL AMIODARONE WOULD START. PATIENT INFORMED THAT THE DOCTOR'S ORDER WAS FOR 9AM ON 02/04. PATIENT DENIES ANY OTHER NEEDS. BED IN LOW POSITION WITH WHEELS LOCKED WITH RAILS UP X3 AND CALL LIGHT WITHIN REACH.
--- NOTE | 2024-02-04 21:48 | NUR ---
PATIENT RESTING IN SITTING UP WITH TV ON WITH NO FAMILY PRESENT WITH NO ACUTE DISTRESS NOTED. PATIENT ON ROOM AIR. AMIODARONE INFUSING INTO RIGHT UPPER ARM PICC LINE WITH NO COMPLICATIONS NOTED. TELEMETRY INTACT. MEDICATION ADMINISTRATION COMPLETED AT THIS TIME. PATIENT TOLERATED WELL. PATIENT DENIES ANY NEEDS AT THIS TIME. BED IN LOW POSITION WITH WHEELS LOCKED WITH RAILS UP X3 AND CALL LIGHT WITHIN REACH.
[2024-02-05] VITALS (7 sets, daily range): BP systolic 102–117; BP diastolic 71–75; PULSE 50–103; TEMP 97.4–98
[2024-02-05 06:02] LABS: HEMATOCRIT 36.5 % (37.0-47.0); HEMOGLOBIN 12.1 g/dl (12.5-16.0); INR 1.7 (0.8-3.0); MEAN CELL VOLUME 90 fl (80.0-100.0); MEAN CORPUSCULAR HEMOGLOBIN 30 pg (27-31); MEAN CORPUSCULAR HGB CONC 33 g/dl (33.0-37.0); MEAN PLATELET VOLUME 13.4 fl (7.4-10.4); PLATELET COUNT 119 K/mm3 (130-400); PROTHROMBIN TIME 18.1 SECONDS (9.7-12.8); RED BLOOD COUNT 4.05 M/mm3 (4.10-5.30); REDCELL DISTRIBUTION WIDTH-CV 12.7 % (11.5-14.5)
[2024-02-05] MEDS ORDERED: Adenosine 6 MG/2 ML VIAL IV ONE (09:00)
[2024-02-05] MEDS ORDERED: Amiodarone 200 MG TAB PO SCH (09:00)
--- NOTE | 2024-02-05 09:47 | NUR ---
Pt off the floor for loop recorder
--- NOTE | 2024-02-05 11:37 | NUR ---
Reviewed education for chronic heart failure. Reviewed [facility] CHF zone education, with emphasis on daily weights, obtaining dry weights, monitoring for edema, shortness of breath, decreased endurance, or feeling full when eating less. Reviewed importance of medication compliance with all prescribed medications and when to call your medical provider (CHF Zones). Patient verbalized understanding. Patient s EF is 20-25% which does qualify for Cardiac Rehab. Referral sent to [facility] Card[facility]hab with patient's permission. Staff will follow up via phone in 2 weeks to schedule (will need to wait 6 weeks due to medicare guidelines). Patient agreeable with plan.
--- NOTE | 2024-02-05 11:39 | NUR ---
Pt doing okay, sitting up in the chair at this time. She did just order lunch. Pt having some complaints of headache, PRN tylenol given
[2024-02-05] MEDS ORDERED: TOPROL XL 25MG25 MG PO (11:58)
[2024-02-05] MEDS ORDERED: PACERONE400 MG PO (11:58)
[2024-02-05] MEDS ORDERED: ASPIRIN E.C. 8181 MG PO (11:58)
--- NOTE | 2024-02-05 12:30 | NUR ---
Orders entered for discharge. I did call and discuss pts heart rate with Ramandeep Freedman with Dr Mckeon. Pts heart rate typically in the 50s but will jump to right around 100 for a short time and then back to 50s. Pt is not symptomatic of this. Cardiology ok with this and will follow up in the office.
--- NOTE | 2024-02-05 13:54 | NUR ---
Pt doing well. PICC line has been removed. Reviewed discharge instructions with pt as well as follow appointment and prescriptions. Pt escorted out via wheelchair
== END 2024-02-05 14:01 | disposition home or self-care (01) | DRG 261 ==
LOC: COL.ER 21:52 → MEDICAL 02-01 00:26
PROVIDERS: Emergency Medicine; Internal Medicine; Physician Assistant; ADMIT Internal Medicine
PROC: 5A2204Z Restoration of Cardiac Rhythm, Single (ICD-10-PCS; principal; 2024-02-01)
PROC: 0JH632Z Insertion of Monitoring Device into Chest Subcutaneous Tissue and Fascia, Percutaneous Approach (ICD-10-PCS; 2024-02-01)
PROC: 02HV33Z Insertion of Infusion Device into Superior Vena Cava, Percutaneous Approach (ICD-10-PCS; 2024-02-01)
DX: I48.0 Paroxysmal atrial fibrillation (principal); I50.20 Unspecified systolic (congestive) heart failure; I47.10 Supraventricular tachycardia, unspecified; D69.6 Thrombocytopenia, unspecified; D64.9 Anemia, unspecified; Z86.718 Personal history of other venous thrombosis and embolism; E78.5 Hyperlipidemia, unspecified; F32.A Depression, unspecified; G25.81 Restless legs syndrome; I11.0 Hypertensive heart disease with heart failure
CPT/HCPCS: A9500-JZ; C1751; C1764; J0153; J0282; J1644; J2405; J2704; J2785; J3475; J7030; J7060

== ENCOUNTER 2024-02-13 11:28 | Observation (INO) | payer MEDICARE, BC ==
[~2024-02-13] VITALS: Ht 180.3 cm; Wt 124.9 kg
[~2024-02-13 11:28] MED LIST changes: +ASPIRIN E.C. 8181 MG PO; +LASIX 20MG TABL20 MG PO; +LYRICA 75MG CAP75 MG PO; +MAGNESIUM250 M1 PO; +NATURAL IRON65 MG; +PACERONE400 MG PO; +REQUIP 1MG T1 MG/TAB PO; +REQUIP2 MG PO; +SEMAGLUTIDE; +TOPROL XL 25MG25 MG PO; +WEGOVY0.25 MG/0. SL; +ZYRTEC 10MG10 MG PO
[2024-02-13] MEDS ORDERED: NS 500 ML IV ONE (12:00)
[2024-02-13 12:20] LABS: BASO % 0.3 % (0.0-2.0); EOS # 0.1 K/mm3 (0.0-0.7); EOS % 2.4 % (0.0-4.0); GRAN # 4.1 K/mm3 (1.4-6.5); HEMATOCRIT 39.2 % (37.0-47.0); HEMOGLOBIN 12.9 g/dl (12.5-16.0); LYMPH # 1.2 K/mm3 (1.2-3.4); LYMPH % 20.5 % (20.0-51.0); MEAN CELL VOLUME 92 fl (80.0-100.0); MEAN CORPUSCULAR HEMOGLOBIN 30 pg (27-31); MEAN CORPUSCULAR HGB CONC 33 g/dl (33.0-37.0); MEAN PLATELET VOLUME 12.6 fl (7.4-10.4); MONO # 0.4 K/mm3 (0.1-0.6); MONO % 7.5 % (1.7-9.3); PLATELET COUNT 162 K/mm3 (130-400); RED BLOOD COUNT 4.28 M/mm3 (4.10-5.30); REDCELL DISTRIBUTION WIDTH-CV 13.2 % (11.5-14.5)
[2024-02-13 12:30] LABS: ALBUMIN 3.5 g/dL (3.4-4.8); CALCIUM 9.5 mg/dL (8.4-10.2); CREATININE, serum 0.96 mg/dL (0.57-1.11); POTASSIUM 4.4 mEq/L (3.5-4.5); TOTAL PROTEIN 6.4 g/dl (6.2-8.1)
[2024-02-13 12:40] LABS: TROPONIN-I 0.013 ng/mL (0.00-0.033)
[2024-02-13] MEDS ORDERED: Iohexol 300 - 100 ML VIAL IV ONE (12:45)
[2024-02-13] MEDS ORDERED: NS 100 ML IV ONE (12:52)
[2024-02-13] MEDS ORDERED: TOPROL XL 50MG50 MG PO (12:56)
[2024-02-13] MEDS ORDERED: *Potassium Replacement Protocol MC SCH (14:00)
[2024-02-13 14:30] VITALS: BP 96/49; PULSE 49; TEMP 98.6
[2024-02-13] MEDS ORDERED: Doxycycline Monohydrate 100 MG CAP PO SCH ×2 (14:58→21:00)
[2024-02-13] MEDS ORDERED: Apixaban 5 MG TABLET PO SCH (14:58)
[2024-02-13] MEDS ORDERED: Escitalopram 10 MG TAB PO SCH (14:58)
[2024-02-13] MEDS ORDERED: cefTRIAXone 1 G in Water For Injection,Sterile 10 ML IV SCH (15:00)
--- NOTE | 2024-02-13 15:28 | NUR ---
SW met with patient to complete initial assessment for discharge planning. Patient known to this SW from previous admission. Patient lives alone in a [facility] in [place], sees Dr. Unger as her PCP and uses [facility]. Patient uses cane, walker, BSC, shower chair, walk in shower, grab bars and life vest. Patient lists her brother Dwayne Silveira ([phone]) as her DPOA and her friend Ambreen Moya ([phone]) as alternate DPOA. Patient states she plans to return home independently at discharge. Discharge plan: Home
--- NOTE | 2024-02-13 15:40 | NUR ---
1410-PT ADMITTED FROM ED WITH HYPOTENTION AND BRADYCARDIA. PT TRANSFERED FROM [facility] TO BED. PT IS SOB WITH ACTIVITY. PT IS AXOX4. BEDSIDE TO EVALUATE PT. PT IS SB ON TELE HR 40'S. BP IN THE 90'S. PT STATES SHE DOES NOT FEEL DIZZY ANYMORE. PT ORIENTED TO ROOM AND FLOOR. 1430- BEDSIDE.
[2024-02-13 15:56] VITALS: BP 99/61; PULSE 51; TEMP 97.7
[2024-02-13 17:30] VITALS: BP_SYST 99
[2024-02-13 20:45] VITALS: BP_SYST 95
[2024-02-13] MEDS ORDERED: Metoprolol Tartrate 25 MG TAB PO SCH (21:00)
[2024-02-13] MEDS ORDERED: Pregabalin 75 MG CAP PO SCH (21:00)
--- NOTE | 2024-02-13 21:00 | NUR ---
Shanna MARSH called for Zofran order-- will give when verified.
[2024-02-13 21:07] VITALS: BP 100/71; PULSE 53; TEMP 97.7
[2024-02-13] MEDS ORDERED: Ondansetron 4 MG/2 ML VIAL IV PRN (21:30)
--- NOTE | 2024-02-13 23:00 | NUR ---
Dr Madrid called regarding pts meds-- no Amiodarone has been ordered for this patient,, pt took 400mg this am , order for 200mg tonight and start 300 mg BID tomorrow.
[2024-02-13 23:30] VITALS: BP 95/68; PULSE 55; TEMP 97.6
--- NOTE | 2024-02-14 00:05 | NUR ---
Shanna called for Tylenol order for headache-
[2024-02-14] MEDS ORDERED: Amiodarone 200 MG TAB PO ONE (00:15)
[2024-02-14 00:30] VITALS: BP_SYST 95
[2024-02-14] MEDS ORDERED: Acetaminophen 325 MG TAB PO PRN (00:45)
[2024-02-14 03:42] VITALS: BP 90/60; PULSE 50; TEMP 97.8
[2024-02-14 04:47] VITALS: BP_SYST 90
--- NOTE | 2024-02-14 05:55 | NUR ---
Did get a little rest/not much, states could not fall asleep, Tele; Brannon at 50/min, Wants her marshal [place] dc this AM
[2024-02-14 06:48] LABS: BASO % 0.4 % (0.0-2.0); EOS # 0.1 K/mm3 (0.0-0.7); GRAN # 2.8 K/mm3 (1.4-6.5); GRAN % 57.6 % (42.2-75.2); HEMOGLOBIN 11.8 g/dl (12.5-16.0); LYMPH # 1.4 K/mm3 (1.2-3.4); MEAN CELL VOLUME 91 fl (80.0-100.0); MEAN CORPUSCULAR HEMOGLOBIN 29 pg (27-31); MEAN CORPUSCULAR HGB CONC 33 g/dl (33.0-37.0); MEAN PLATELET VOLUME 12.5 fl (7.4-10.4); MONO # 0.5 K/mm3 (0.1-0.6); MONO % 10.8 % (1.7-9.3); PLATELET COUNT 141 K/mm3 (130-400); RED BLOOD COUNT 4.01 M/mm3 (4.10-5.30); REDCELL DISTRIBUTION WIDTH-CV 13.3 % (11.5-14.5)
--- NOTE | 2024-02-14 06:55 | NUR ---
PT RESTING IN BED ON THE PHONE. PT IS ON RA. PT IS SB ON TELE. PT DENIES SOB, CP, OR PALPITATIONS. PT DOSE HAVE A DRY COUGH. PT IS AXOX4. PT HAS CALL LIGHT AND INSTRUCTED TO CALL WITH ALL NEEDS.
[2024-02-14 06:59] LABS: HEMATOCRIT 36.3 % (37.0-47.0)
[2024-02-14 07:09] LABS: ALBUMIN 3.3 g/dL (3.4-4.8); CALCIUM 9.2 mg/dL (8.4-10.2); CREATININE, serum 0.9 mg/dL (0.57-1.11); MAGNESIUM 2.1 mg/dL (1.6-2.6); POTASSIUM 4.5 mEq/L (3.5-4.5)
[2024-02-14 07:24] VITALS: BP 101/67; PULSE 51; TEMP 98.1
[2024-02-14] MEDS ORDERED: Amiodarone 200 MG TAB PO SCH (09:00)
[2024-02-14] MEDS ORDERED: cefTRIAXone 1 G in Water For Injection,Sterile 10 ML IV SCH (09:00)
[2024-02-14 09:05] VITALS: BP_SYST 101
[2024-02-14 11:11] VITALS: BP 109/77; PULSE 52; TEMP 97.8
--- NOTE | 2024-02-14 11:13 | NUR ---
1015-SOLIZ REMOVED PER . NO COMPLICATIONS. PT ASSISTED TO RESTROOM AFTER. PT DENIES DIZZINESS, CP, OR SOB WITH ACTIVITY. PT INSTRUCTED TO CALL WHEN COMPLETED.
[2024-02-14] MEDS ORDERED: CORDARONE200 MG/TAB PO (12:09)
[2024-02-14] MEDS ORDERED: LOPRESSOR 225 MG/TAB PO (12:10)
[2024-02-14] MEDS ORDERED: OMNICEF 300MG300 MG PO (12:11)
[2024-02-14] MEDS ORDERED: DOXYCYCLINE 10100 MG PO (12:12)
--- NOTE | 2024-02-14 13:43 | NUR ---
1310-IVS AND TELE REMOVED. DISCHARGE INSTRUCTIONS DISCUSSED WITH PT. DISCUSSED NEW MEDICATIONS AND AMIO TAPER DOSING. INSTRUCTED PT TO CALL CARDIOLOGY IN AM TO SCHEDULE APPOINTMENT. PT HAS A PCP APPOINTMENT SCHEDULED FOR TOMORROW. ALL QUESTIONS ANSWERED. 1325-PT WHEELED OUT FOR DISCHARGED BY PCT.
== END 2024-02-14 13:30 | disposition home or self-care (01) ==
LOC: COL.ER 11:28 → MEDICAL 12:47
PROVIDERS: Personal Emergency Response Attendant; ADMIT Internal Medicine
DX: J18.9 Pneumonia, unspecified organism (principal); R06.02 Shortness of breath; R42 Dizziness and giddiness; I95.9 Hypotension, unspecified; I42.9 Cardiomyopathy, unspecified; R00.1 Bradycardia, unspecified; I48.91 Unspecified atrial fibrillation; I47.19 Other supraventricular tachycardia; E78.5 Hyperlipidemia, unspecified; F32.A Depression, unspecified; G25.81 Restless legs syndrome; Z79.01 Long term (current) use of anticoagulants; Z86.718 Personal history of other venous thrombosis and embolism; Z85.828 Personal history of other malignant neoplasm of skin; Z86.711 Personal history of pulmonary embolism; Z79.899 Other long term (current) drug therapy
CPT/HCPCS: G0378; J0696; J1956; J2405; J7040; Q9967

== ENCOUNTER 2024-04-06 14:07 | Outpatient (RCR) | payer MEDICARE, BC ==
[~2024-04-06 14:07] MED LIST changes: +CORDARONE200 MG/TAB PO; +DOXYCYCLINE 10100 MG PO; +LOPRESSOR 225 MG/TAB PO; +OMNICEF 300MG300 MG PO; +TOPROL XL 50MG50 MG PO
== END 2024-04-07 | disposition home or self-care (01) ==
LOC: COL.CR
DX: I50.9 Heart failure, unspecified (principal)